=== PATIENT | female | born 1945 | race Caucasian/White ===

== ENCOUNTER → 2016-07-10 | Outpatient (CLI) | payer OTHER | LOC: KOH-I 15:52 | DX: Z13.820 Encounter for screening for osteoporosis (principal); M25.551 Pain in right hip; M25.111 Fistula, right shoulder | CPT/HCPCS: 73030; 73502 ==

== ENCOUNTER 2020-04-28 11:03 | Emergency (ER) | payer OTHER ==
[2020-04-28 12:02] LABS: HEMOGLOBIN 13.3 gm/dl (12.3-15.3); RED BLOOD COUNT 4.49 M/UL (4.00-5.10); WHITE BLOOD COUNT 4.1 K/UL (4.5-11.0)
[2020-04-28 12:24] LABS: BUN/CREATININE RATIO 18 (0-10)
[2020-04-28] MEDS ORDERED: ZOFRAN ODT 4 MG4 MG SL (14:06)
== END 2020-04-28 14:57 | disposition home or self-care (01) ==
LOC: ER1 11:03
PROVIDERS: Student in an Organized Health Care Education/Training Program
DX: U07.1 COVID-19 (principal); E03.9 Hypothyroidism, unspecified; Z91.040 Latex allergy status; Z91.09 Other allergy status, other than to drugs and biological substances
CPT/HCPCS: 36415; 80053; 82550; 82553; 83874; 84484; 85025; 93005; 96374; 99284; J2405; M0239